=== PATIENT | female | born 1990 | race Caucasian/White ===

== ENCOUNTER 2023-02-24 18:34 | Emergency (ER) | payer OTHER ==
[~2023-02-24] VITALS: Ht 154.9 cm; Wt 68.9 kg
[2023-02-24 18:58] VITALS: BP 152/86; PULSE 82; RESP 18; TEMP 98.2; O2SAT 100
[2023-02-24] MEDS ORDERED: BENZ150C2 PO (19:24)
[2023-02-24] MEDS ORDERED: FLONAS NS (19:24)
[2023-02-24 21:00] VITALS: BP 152/86; PULSE 82; RESP 18; TEMP 98.2; O2SAT 100
== END 2023-02-24 21:00 | disposition home or self-care (01) ==
LOC: MED 18:34
DX: J06.9 Acute upper respiratory infection, unspecified (principal); R09.82 Postnasal drip; Z79.899 Other long term (current) drug therapy
CPT/HCPCS: 71045; 99283